=== PATIENT | male | born 1955 | race Caucasian/White ===

== ENCOUNTER 2022-07-19 08:36 | Outpatient (CLI) | payer MEDICARE, BC, SELFPAY ==
[2022-07-19 14:00] LABS: Cholesterol* 122 mg/dL (90-199)
[2022-07-19 14:01] LABS: Blood Urea Nitrogen* 14 mg/dL (7-30); Creatinine* 0.7 mg/dL (0.5-1.5); Estimated Glomerular Filt Rate 101 ml/min; Glucose* 66 mg/dL (60-115); Triglycerides* 87 mg/dL (40-149)
[2022-07-19 14:02] LABS: HDL Cholesterol* 42 mg/dL (>=40); LDL Cholesterol Calculated 63 mg/dL (<100)
[2022-07-19 14:30] LABS: PSA Screen* 0.56 ng/mL (0.10-4.00)
[2022-07-19 14:49] LABS: Vitamin B12* 326 pg/mL (243-894)
[2022-07-19 15:15] LABS: Sodium* 142 mmol/L (135-149)
[2022-07-19 15:53] LABS: Calcium* 9.8 mg/dL (8.4-10.6); Carbon Dioxide* 27 mmol/L (20-32); Chloride* 107 mmol/L (96-114); Potassium* 4.5 mmol/L (3.6-5.1)
== END 2022-07-19 08:37 | disposition home or self-care (01) ==
PROVIDERS: PCP Family Medicine; Visit Provider Family Medicine
DX: Z00.00 Encounter for general adult medical examination without abnormal findings (principal); Z13.21 Encounter for screening for nutritional disorder; N40.0 Benign prostatic hyperplasia without lower urinary tract symptoms; Z12.5 Encounter for screening for malignant neoplasm of prostate; E78.5 Hyperlipidemia, unspecified; Z13.29 Encounter for screening for other suspected endocrine disorder; Z13.1 Encounter for screening for diabetes mellitus
CPT/HCPCS: 80048; 80061; 82607; 84153; 84443

== ENCOUNTER 2023-07-15 10:32 | Outpatient (CLI) | payer MEDICARE, BC, SELFPAY | END 2023-07-15 10:33 | disposition home or self-care (01) | PROVIDERS: PCP Family Medicine; Visit Provider Family Medicine | DX: E78.5 Hyperlipidemia, unspecified (principal); Z13.1 Encounter for screening for diabetes mellitus; Z13.0 Encounter for screening for diseases of the blood and blood-forming organs and certain disorders involving the immune mechanism | CPT/HCPCS: 80048; 80061 ==

== ENCOUNTER 2024-11-21 10:51 | Outpatient (CLI) | payer MEDICARE, BC, SELFPAY | END 2024-11-21 10:52 | disposition home or self-care (01) | PROVIDERS: PCP Family Medicine; Visit Provider Family Medicine | DX: E78.5 Hyperlipidemia, unspecified (principal); R53.83 Other fatigue; Z13.0 Encounter for screening for diseases of the blood and blood-forming organs and certain disorders involving the immune mechanism; Z12.5 Encounter for screening for malignant neoplasm of prostate; Z13.1 Encounter for screening for diabetes mellitus; Z83.2 Family history of diseases of the blood and blood-forming organs and certain disorders involving the immune mechanism; B00.9 Herpesviral infection, unspecified; Z15.01 Genetic susceptibility to malignant neoplasm of breast | CPT/HCPCS: 80048; 80061; 81241; G0103 ==

== ENCOUNTER 2025-01-02 14:27 | Emergency (ER) | payer MEDICARE, BC, SELFPAY ==
[2025-01-02] VITALS (13 sets, daily range): BP systolic 134–160; BP diastolic 87–96; PULSE 51–66; RESP 16–21; TEMP 36.6; O2SAT 90–97; BMI 27.8
--- NOTE | 2025-01-02 14:46 | CRLHL7_ITS ---
For Patients: As a result of the Century Cures Act, medical imaging exams and procedure reports are released immediately into your electronic medical record. You may view this report before your referring provider. If you have questions, please contact your health care provider. INDICATION: Right lower extremity pain. TECHNIQUE: Right lower extremity Doppler venous ultrasound examination was performed. Grayscale and color Doppler images were obtained. Spectral analysis was performed. COMPARISON: None. FINDINGS: RIGHT LOWER EXTREMITY: Common femoral vein: Fully compressible. No deep vein thrombus. Normal flow and response to augmentation on color Doppler imaging. Superficial femoral vein: The mid and distal superficial femoral vein is noncompressible. There is preservation of flow on color Doppler imaging. Deep femoral vein: No deep vein thrombus Popliteal vein: Noncompressible popliteal vein with absence of flow on color Doppler imaging. Lower calf: The visualized posterior tibial and peroneal veins are fully compressible. No deep vein thrombus. Normal flow and response to augmentation on color Doppler imaging. Superficial veins: Noncompressible greater saphenous vein due to a superficial venous thrombus. Soft tissues: No popliteal fossa fluid collection identified. LEFT LOWER EXTREMITY: Common femoral vein: Fully compressible. No deep vein thrombus. Normal flow and response to augmentation on color Doppler imaging. IMPRESSION: 1. Acute deep vein thrombus within the left femoro-popliteal system. 2. Left greater saphenous vein superficial thrombophlebitis. Dictated by Eris Gamez MD @ 01/02/2025 4:07:32 PM (Electronically Signed)
--- NOTE | 2025-01-02 14:47 | ED_ITS ---
HPI - General Adult General Chief complaint: Extremity Pain/Injury, Lower <Kiran Simmons MD - Last Filed: 01/05/25 15:54> Stated complaint: Back of R leg pain, poss. blood clot sent triage <Kiran Simmons MD - Last Filed: 01/05/25 15:54> Time Seen by Provider: 01/02/25 14:32 <Kiran Simmons MD - Last Filed: 01/05/25 15:54> History of Present Illness HPI narrative: Patient is a 69-year-old male who recently traveled to [facility] and return on a flight. Has had 10 days symptoms of right inner groin pain and proximal thigh pain on the medial aspect. He feels that there is some fullness in there and tenderness. He has not had redness or warmth erythema no leg swelling. He has factor 5 Leiden mutation. He was not on aspirin on his flight. He sees Dr. Fagan for primary care. He does not have any chest pain shortness of breath today does not any difficulty breathing his O2 sat is excellent today. Last night he was lying in bed and he felt just chest symptoms but these resolved. He has a history of BPPV. Vital signs today look within normal limits O2 sat 96% he is afebrile blood pressure 134/87. <Kiran Simmons MD - Last Filed: 01/05/25 15:54> Related Data Home medications: Home Medications ?Medication ?Instructions ?Recorded ?Confirmed cholecalciferol (vitamin D3) 10 10 mcg PO QDAY 2 01/02/25 mcg (400 unit) capsule cyanocobalamin (vitamin B-12) 1,000 mcg PO QDAY 01/02/25 1,000 mcg capsule acyclovir 400 mg tablet 400 mg PO TID PRN 11/21/24 0 01/02/25 omeprazole 20 mg tablet,delayed 20 mg PO QDAY 11/21/24 01/02/25 release atorvastatin 20 mg tablet 20 mg PO QDAY 12/01/2401/02 Previous Rx's ?Medication ?Instructions ?Recorded tamsulosin 0.4 mg capsule See Rx Instructions .Route 0 11/21/24 .COMPLEX #90 caps apixaban 5 mg tablet (Eliquis) 5 mg PO BID #60 tabs apixaban 5 mg tablet (Eliquis) 10 mg (2 x 5 mg) PO BID 7 days #14 01/02/25 tabs <Kiran Simmons MD - Last Filed: 01/05/25 15:54> Allergies/adverse reactions: Allergies Allergy/AdvReac Type Severity Reaction Status Date / Time No Known Allergies Allergy Unknown Verified 01/02/25 17:20 <Kiran Simmons MD - Last Filed: 01/05/25 15:54> Review of Systems Status of ROS: Reports: 6 or more systems reviewed and unremarkable except as noted in History and below <Kiran Simmons MD - Last Filed: 01/05/25 15:54> PFSH PFS Surgical History: Surgical History Status post vasectomy ?Z98.52 - Vasectomy status (ICD-10) History of hand surgery ?Z98.890 - Other specified postprocedural states (ICD-10) <Kiran Simmons MD - Last Filed: 01/05/25 15:54> Family History: Family History Other ASCVD (arteriosclerotic cardiovascular disease) Diabetes <Kiran Simmons MD - Last Filed: 01/05/25 15:54> Social History: Social History What is your current living situation?: I presently have a place to live Problems where you live: no known problems In the past 12 months, utilities in danger of being shut off: no In past 12 months, lack of transportation kept you from medical appts, meetings, work, or getting things needed for daily living: no In the past 12 mos, have been you worried that your food would run out before you had money to buy more?: never true In the past 12 mos, the food you bought just didn't last and you didn't have money to buy more?: never true Smoking Status: Never smoker Do you use any of these nicotine containing products: None Second hand tobacco smoke exposure: No How often do you have a drink containing alcohol: never AUDIT-C Alcohol total score: 0 Non-prescribed substance use: denies use How often does anyone, including family, friends and others, physically hurt you : never How often does anyone, including family, friends and others, insult or talk down to you: never How often does anyone, including family, friends and others, threaten you with harm: never How often does anyone, including family, friends and others, scream or curse at you: never <Kiran Simmons MD - Last Filed: 01/05/25 15:54> Exam Narrative: Exam Narrative: Objective: The patient is asymptomatic currently other than some right inner thigh pain. No chest pain complained of no shortness of breath. No dizziness at this time. HEENT is unremarkable no facial asymmetry neck is supple chest is clear no rales or wheezing heart rhythm regular 2/6 systolic murmur. Extremities he has got some right inner thigh proximal discomfort. No redness, no erythema, no marked tenderness, no fluctuance. Right lower extremity shows no swelling or edema. <Kiran Simmons MD - Last Filed: 01/05/25 15:54> Const: Vital Signs, click to edit/add: Vital Signs - 24 hr 01/02/25 14:30 01/02/25 15:57 Temperature 97.9 F Pulse Rate [Pulse Oximeter] 66 Respiratory Rate 16 Blood Pressure [Ri ght Upper Arm] 134/87 Pulse Oximetry 96 97 Oxygen Delivery Me thod Room Air <Kiran Simmons MD - Last Filed: 01/05/25 15:54> Vital Signs, click to edit/add: Vital Signs - 24 hr 01/02/25 14:30 01/02/25 15:57 Temperature 97.9 F Pulse Rate [Pulse Oximeter] 66 Respiratory Rate 16 Blood Pressure [Ri ght Upper Arm] 134/87 Pulse Oximetry 96 97 Oxygen Delivery Me thod Room Air <Raymundo Smith MD - Last Filed: 01/04/25 11:43> Course Vital Signs Vital signs: Initial Vital Signs Temperature 97.9 F 01/02/25 14:30 Temperature Source Temporal Artery Scan 01/02/25 14:30 Pulse Rate 66 01/02/25 14:30 Respiratory Rate 16 01/02/25 14:30 Blood Pressure 134/87 01/02/25 14:30 Blood Pressure Mean 102 01/02/25 14:30 Blood Pressure Position Sitting 01/02/25 14:30 Pulse Oximetry 96 01/02/25 14:30 Oxygen Delivery Method Room Air 01/02/25 14:30 Vital Signs Temperature 97.9 F 01/02/25 14:30 Pulse Rate 66 01/02/25 14:30 Respiratory Rate 16 01/02/25 14:30 Blood Pressure 134/87 01/02/25 14:30 Pulse Oximetry 96 01/02/25 14:30 Oxygen Delivery Method Room Air 01/02/25 14:30 Temperature 97.9 F 01/02/25 14:30 Pulse Rate 56 L 01/02/25 18:45 Respiratory Rate 21 01/02/25 17:00 Blood Pressure 160/96 H 01/02/25 16:53 Pulse Oximetry 92 01/02/25 18:45 Oxygen Delivery Method Room Air 01/02/25 14:30 <Kiran Simmons MD - Last Filed: 01/05/25 15:54> Initial Vital Signs Temperature 97.9 F 01/02/25 14:30 Temperature Source Temporal Artery Scan 01/02/25 14:30 Pulse Rate 66 01/02/25 14:30 Respiratory Rate 16 01/02/25 14:30 Blood Pressure 134/87 01/02/25 14:30 Blood Pressure Mean 102 01/02/25 14:30 Blood Pressure Position Sitting 01/02/25 14:30 Pulse Oximetry 96 01/02/25 14:30 Oxygen Delivery Method Room Air 01/02/25 14:30 Vital Signs Temperature 97.9 F 01/02/25 14:30 Pulse Rate 66 01/02/25 14:30 Respiratory Rate 16 01/02/25 14:30 Blood Pressure 134/87 01/02/25 14:30 Pulse Oximetry 96 01/02/25 14:30 Oxygen Delivery Method Room Air 01/02/25 14:30 Temperature 97.9 F 01/02/25 14:30 Pulse Rate 56 L 01/02/25 18:45 Respiratory Rate 21 01/02/25 17:00 Blood Pressure 160/96 H 01/02/25 16:53 Pulse Oximetry 92 01/02/25 18:45 Oxygen Delivery Method Room Air 01/02/25 14:30 <Raymundo Smith MD - Last Filed: 01/04/25 11:43> Medications Administered Medications: Discontinued Medications Generic Name Dose Route Start Last Admin Trade Name Freq PRN Reason Stop Dose Admin Apixaban 10 mg 01/02/25 15:42 01/02/25 16:41 Apixaban 5 Mg Tablet PO 01/02/25 15:43 10 mg ONCE ONE Administration <Kiran Simmons MD - Last Filed: 01/05/25 15:54> Discontinued Medications Generic Name Dose Route Start Last Admin Trade Name Freq PRN Reason Stop Dose Admin Apixaban 10 mg 01/02/25 15:42 01/02/25 16:41 Apixaban 5 Mg Tablet PO 01/02/25 15:43 10 mg ONCE ONE Administration <Raymundo Smith MD - Last Filed: 01/04/25 11:43> Medical Decision Making MDM Narrative Medical decision making narrative: [age] year white male recent flight with factor 5 mutation with some right inner thigh symptoms. Certainly this could be from his travel from walking sitting too long cetera. Need to rule out DVT. He does not have symptoms of a PE. He does not have coronary artery symptoms. At this point will do a Doppler scan of his right lower extremity this is negative then presumably per Dr. Griffin's recommendation should be on aspirin daily and ice pack they inner thigh recheck with Elias in a few days, if problems or concerns in the interim return to the ED ,he was comfortable this , specifically out ask him to come back if he has any chest pain or shortness of breath. Also any leg swelling. Addendum 3:42 p.m.: The patient has a positive Doppler scan for DVT in the right lower extremity. He has a small clot in his mid thigh and then from his knee down it is clotted. He was given apixaban 10 mg he will need 10 mg b.i.d. for 7 days then 5 b.i.d. for probably 3 months. Because he had some chest symptoms last night will get a chest CT scan, EKG, put him on a monitor and oximetry. If these are all reassuring and there is no significant PE such as saddle emboli he could probably be discharged on the Eliquis given his stability of vital signs and clinical situation. Will notify Dr. Diaz of findings and he will follow up the CT scan EKG and I will put in orders for the Eliquis. <Kiran Simmons MD - Last Filed: 01/05/25 15:54> [age] year white male recent flight with factor 5 mutation with some right inner thigh symptoms. Certainly this could be from his travel from walking sitting too long cetera. Need to rule out DVT. He does not have symptoms of a PE. He does not have coronary artery symptoms. At this point will do a Doppler scan of his right lower extremity this is negative then presumably per Dr. Griffin's recommendation should be on aspirin daily and ice pack they inner thigh recheck with Elias in a few days, if problems or concerns in the interim return to the ED ,he was comfortable this , specifically out ask him to come back if he has any chest pain or shortness of breath. Also any leg swelling. Addendum 3:42 p.m.: The patient has a positive Doppler scan for DVT in the right lower extremity. He has a small clot in his mid thigh and then from his knee down it is clotted. He was given apixaban 10 mg he will need 10 mg b.i.d. for 7 days then 5 b.i.d. for probably 3 months. Because he had some chest symp toms last night will get a chest CT scan, EKG, put him on a monitor and oximetry. If these are all reassuring and there is no significant PE such as saddle emboli he could probably be discharged on the Eliquis given his stability of vital signs and clinical situation. Will notify Dr. Diaz of findings and he will follow up the CT scan EKG and I will put in orders for the Eliquis. Sarah -- Inherited this patient at change of shift pending CT imaging of his chest. documented right leg DVT and has been given a dose of apixaban. Is not hypoxic or demonstrating respiratory findings. EKG is reviewed independently by me showing a sinus bradycardia at a rate of 50. Looks like historically is in a lower heart rate generally. do not have prior EKG for comparison I did review CT imaging. Radiology confirms multiple small emboli in the right lower lung. No right heart strain. Cardiomegaly is noted. This will need to be further characterized. Does have a long history of being a runner. Is already to receive anticoagulation that would be appropriate for PEs as well. Duration is now to be considered. Radiology over-read below dication: DVT IN LEG, CHEST TIGHTNESS Technique: CTA chest, pulmonary embolism protocol, utilizing 95 mL Isovue 370 Comparison: None Findings: Subcentimeter low-density left thyroid nodule, for which no routine follow-up imaging is needed. No thoracic lymphadenopathy. Cardiomegaly. No CT evidence of right heart strain. No pericardial effusion. Coronary artery calcifications. The thoracic aorta and pulmonary artery are normal in caliber. There are few small pulmonary emboli in the segmental arteries of the right lower lobe (series number 4, image 104-133). No focal airspace consolidation, pleural effusion, or pneumothorax. Trace bibasilar atelectasis. No suspicious pulmonary nodules or masses. The airways are clear. The imaged upper abdomen is without acute abnormality. No acute fracture or malalignment. There are some degenerative changes of the spine. Impression: 1. There are few small pulmonary emboli in the segmental arteries of the right lower lobe (series number 4, image 104-133). 2. Cardiomegaly without CT evidence of right heart strain. Please note that all CT scans at this facility use dose modulation, iterative reconstruction, and/or weight-based dosing when appropriate to reduce radiation dose to as low as reasonably achievable. Dictated by Kvng Morales MD @ 01/02/2025 6:05:55 PM ----- ADDENDUM ----- Report was received by Dr. Smith @ 1809 hours on 01/02/2025. Dictated by Kvng Morales MD @ Jan 02 2025 6:16PM (Electronically Signed) For Patients: As a result of the Century Cures Act, medical imaging exams and procedure reports are released immediately into your electronic medical record. You may view this report before your referring provider. If you have questions, please contact your health care provider. Indication: DVT IN LEG, CHEST TIGHTNESS Technique: CTA chest, pulmonary embolism protocol, utilizing 95 mL Isovue 370 Comparison: None Findings: Subcentimeter low-density left thyroid nodule, for which no routine follow-up imaging is needed. No thoracic lymphadenopathy. Cardiomegaly. No CT evidence of right heart strain. No pericardial effusion. Coronary artery calcifications. The thoracic aorta and pulmonary artery are normal in caliber. There are few small pulmonary emboli in the segmental arteries of the right lower lobe (series number 4, image [id number]). No focal airspace consolidation, pleural effusion, or pneumothorax. Trace bibasilar atelectasis. No suspicious pulmonary nodules or masses. The airways are clear. The imaged upper abdomen is without acute abnormality. No acute fracture or malalignment. There are some degenerative changes of the spine. Impression: 1. There are few small pulmonary emboli in the segmental arteries of the right lower lobe (series number 4, image 104-133). 2. Cardiomegaly without CT evidence of right heart strain. Please note that all CT scans at this facility use dose modulation, iterative reconstruction, and/or weight-based dosing when appropriate to reduce radiation dose to as low as reasonably achievable. Dictated by Kvng oMrales MD @ 01/02/2025 6:05:55 PM See patient discharge plan for further discussion. We are initiating anticoagulation for a blood clot in your right leg and small clots in your right lung. You might consider warm packing your right leg for comfort. I think let discomfort be your guide as far as activity but would avoid, while taking anticoagulation, activities where significant impact is more likely. See directions for anticoagulation dosing of Eliquis (apixaban). 10 mg twice da mejia for a week and then to 5 mg twice daily. Within the next week or 2 would schedule a follow-up appointment with Dr. Griffin/clinic to discuss further evaluations that might be necessary and durati on of anticoagulation. Return for persistent and increasing shortness of breath, persistent and increasing chest pain. <Raymundo Smith MD - Last Filed: 01/04/25 11:43> Medical Records Medical records reviewed: Yes I reviewed the patient's medical records <Raymundo Smith MD - Last Fi led: 01/04/25 11:43> Lab Data Lab results reviewed: Yes I reviewed the patient's lab results <Raymundo Smith MD - Last Filed: 01/04/25 11:43> Labs: Lab Results 01/02/25 Range/Units 15:52 WBC 5.92 (4.50-11.00) K/uL RBC 5.49 (4.30-5.90) m/uL Hgb 16.1 (13.5-17.5) gm/dL Hct 47.9 (37.0-53.0) % MCV 87 (80-100) fL MCH 29 (26-34) pg MCHC 34 (32-36) gm/dL RDW Coeff of Katherine 13.1 (11.5-15.5) % Plt Count 194 (140-440) K/uL Neut % (Auto) 58.4 (42.0-72.0) % Lymph % (Auto) 29.6 (20-44) % [place] % (Auto) 8.1 (0.0-11.0) % Eos % (Auto) 3.5 (0.0-7.0) % Baso % (Auto) 0.2 (0.0-3.0) % Neut # (Auto) 3.46 (1.7-7.0) K/uL Lymph # (Auto) 1.75 (0.90-2.90) K/uL [place] # (Auto) 0.50 (0.00-0.90) K/UL Eos # (Auto) 0.21 (0.00-0.50) K/uL Baso # (Auto) 0.01 (0.00-0.30) K/uL Abs Immat Gran (auto) 0.01 (0.00-0.30) K/uL Imm/Tot Granulo (auto) 0.2 % INR 0.96 (0.91-1.10) APTT 25 (23-33) Seconds Sodium 141 (135-149) mmol/L Potassium 3.8 (3.6-5.1) mmol/L Chloride 105 (96-114) mmol/L Carbon Dioxide 25 (20-32) mmol/L Anion Gap 11 (7-15) mEq/L BUN 18 (7-30) mg/dL Creatinine 1.1 (0.5-1.5) mg/dL Estimated Creat Clear 69.57 Estimated GFR 73 ml/min Glucose 122 H (60-115) mg/dL Calcium 9.5 (8.4-10.6) mg/dL Total Bilirubin 1.6 H (0.1-1.5) mg/dL Direct Bilirubin 0.0 (0.0-0.5) mg/dL AST 35 (12-35) U/L ALT 44 (4-50) U/L Alkaline Phosphatase 76 (40-150) U/L C-Reactive Protein < 0.5 L (0.5-1.0) mg/dL NT-Pro-B Natriuret Pep 27 (See Note) pg/mL Total Protein 7.5 (6.0-8.3) g/dL Albumin 4.7 (3.3-5.0) g/dL <Kiran Simmons MD - Last Filed: 01/05/25 15:54> Lab Results 01/02/25 Range/Units 15:52 WBC 5.92 (4.50-11.00) K/uL RBC 5.49 (4.30-5.90) m/uL Hgb 16.1 (13.5-17.5) gm/dL Hct 47.9 (37.0-53.0) % MCV 87 (80-100) fL MCH 29 (26-34) pg MCHC 34 (32-36) gm/dL RDW Coeff of Katherine 13.1 (11.5-15.5) % Plt Count 194 (140-440) K/uL Neut % (Auto) 58.4 (42.0-72.0) % Lymph % (Auto) 29.6 (20-44) % [place] % (Auto) 8.1 (0.0-11.0) % Eos % (Auto) 3.5 (0.0-7.0) % Baso % (Auto) 0.2 (0.0-3.0) % Neut # (Auto) 3.46 (1.7-7.0) K/uL Lymph # (Auto) 1.75 (0.90-2.90) K/uL [place] # (Auto) 0.50 (0.00-0.90) K/UL Eos # (Auto) 0.21 (0.00-0.50) K/uL Baso # (Auto) 0.01 (0.00-0.30) K/uL Abs Immat Gran (auto) 0.01 (0.00-0.30) K/uL Imm/Tot Granulo (auto) 0.2 % INR 0.96 (0.91-1.10) APTT 25 (23-33) Seconds Sodium 141 (135-149) mmol/L Potassium 3.8 (3.6-5.1) mmol/L Chloride 105 (96-114) mmol/L Carbon Dioxide 25 (20-32) mmol/L Anion Gap 11 (7-15) mEq/L BUN 18 (7-30) mg/dL Creatinine 1.1 (0.5-1.5) mg/dL Estimated Creat Clear 69.57 Estimated GFR 73 ml/min Glucose 122 H (60-115) mg/dL Calcium 9.5 (8.4-10.6) mg/dL Total Bilirubin 1.6 H (0.1-1.5) mg/dL Direct Bilirubin 0.0 (0.0-0.5) mg/dL AST 35 (12-35) U/L ALT 44 (4-50) U/L Alkaline Phosphatase 76 (40-150) U/L C-Reactive Protein < 0.5 L (0.5-1.0) mg/dL NT-Pro-B Natriuret Pep 27 (See Note) pg/mL Total Protein 7.5 (6.0-8.3) g/dL Albumin 4.7 (3.3-5.0) g/dL <Raymundo Smith MD - Last Filed: 01/04/25 11:43> Discharge Plan Discharge Clinical Impression: DVT (deep venous thrombosis), Acute pain of right thigh, Pulmonary emboli <Kiran Simmons MD - Last Filed: 01/05/25 15:54> Patient Disposition: Home, Self-Care <Kiran Simmons MD - Last Filed: 01/05/25 15:54> Condition: Stable <Kiran Simmons MD - Last Filed: 01/05/25 15:54> Instructions: Pulmonary Embolism (ED), Deep Vein Thrombosis (ED), Blood Thinners (ED) <Kiran Simmons MD - Last Filed: 01/05/25 15:54> Additional Instructions: We are initiating anticoagulation for a blood clot in your right leg and small clots in your right lung. You might consider warm packing your right leg for comfort. I think let discomfort be your guide as far as activity but would avoid, while taking anticoagulation, activities where significant impact is more likely. See directions for anticoagulation dosing of Eliquis (apixaban). 10 mg twice daily for a week and then to 5 mg twice daily. Within the next week or 2 would schedule a follow-up appointment with Dr. Griffin/clinic to discuss further evaluations that might be necessary and duration of anticoagulation. Return for persistent and increasing shortness of breath, persistent and increasing chest pain. <Kiran Simmons MD - Last Filed: 01/05/25 15:54> Activity Level: No Restrictions <Kiran Simmons MD - Last Filed: 01/05/25 15:54> No Restrictions <Raymundo Smith MD - Last Filed: 01/04/25 11:43> Discharge Diet: Regular <Kiran Simmons MD - Last Filed: 01/05/25 15:54> Regular <Raymundo Smith MD - Last Filed: 01/04/25 11:43> Prescriptions: New Eliquis 5 mg tablet 10 mg PO BID 7 Days Qty: 14 2RF Eliquis 5 mg tablet 5 mg PO BID Qty: 60 0RF Rx Instructions: start after the first week of 10 mg bid, go to 5 mg bid. No Action acyclovir 400 mg tablet 400 mg PO TID PRN omeprazole 20 mg tablet,delayed release (DR/EC) 20 mg PO QDAY tamsulosin 0.4 mg capsule See Rx Instructions .ROUTE .COMPLEX Qty: 90 3RF Dose Instruction: TAKE 1 CAPSULE BY MOUTH EVERY DAY Rx Instructions: TAKE 1 CAPSULE BY MOUTH EVERY DAY cholecalciferol (vitamin D3) 10 mcg (400 unit) capsule 10 mcg PO QDAY cyanocobalamin (vitamin B-12) 1,000 mcg capsule 1,000 mcg PO QDAY atorvastatin 20 mg tablet 20 mg PO QDAY <Kiran Simmons MD - Last Filed: 01/05/25 15:54> Follow Up/Referrals: Jarad Griffin MD [Primary Care Provider, Family Practice] <Kiran Simmons MD - Last Filed: 01/05/25 15:54> Stand Alone Forms: [employer] Info Instructions <Kiran Simmons MD - Last Filed: 01/05/25 15:54>
--- NOTE | 2025-01-02 15:39 | CRLHL7_ITS ---
For Patients: As a result of the Century Cures Act, medical imaging exams and procedure reports are released immediately into your electronic medical record. You may view this report before your referring provider. If you have questions, please contact your health care provider. Indication: DVT IN LEG, CHEST TIGHTNESS Technique: CTA chest, pulmonary embolism protocol, utilizing 95 mL Isovue 370 Comparison: None Findings: Subcentimeter low-density left thyroid nodule, for which no routine follow-up imaging is needed. No thoracic lymphadenopathy. Cardiomegaly. No CT evidence of right heart strain. No pericardial effusion. Coronary artery calcifications. The thoracic aorta and pulmonary artery are normal in caliber. There are few small pulmonary emboli in the segmental arteries of the right lower lobe (series number 4, image [id number]). No focal airspace consolidation, pleural effusion, or pneumothorax. Trace bibasilar atelectasis. No suspicious pulmonary nodules or masses. The airways are clear. The imaged upper abdomen is without acute abnormality. No acute fracture or malalignment. There are some degenerative changes of the spine. Impression: 1. There are few small pulmonary emboli in the segmental arteries of the right lower lobe (series number 4, image [id number]). 2. Cardiomegaly without CT evidence of right heart strain. Please note that all CT scans at this facility use dose modulation, iterative reconstruction, and/or weight-based dosing when appropriate to reduce radiation dose to as low as reasonably achievable. Dictated by Kvng Morales MD @ 01/02/2025 6:05:55 PM (Electronically Signed)
[2025-01-02 16:06] LABS: Basophils Absolute Auto 0.01 K/uL (0.00-0.30); Basophils Percent Auto 0.2 % (0.0-3.0); Eosinophils Absolute Auto 0.21 K/uL (0.00-0.50); Eosinophils Percent Auto 3.5 % (0.0-7.0); Hematocrit* 47.9 % (37.0-53.0); Hemoglobin* 16.1 gm/dL (13.5-17.5); Immature Granulocytes Abs Auto 0.01 K/uL (0.00-0.30); Immature Granulocytes Pct Auto 0.2 %; Lymphocytes Absolute Auto 1.75 K/uL (0.90-2.90); Lymphocytes Percent Auto 29.6 % (20-44); Mean Corpuscular HGB Conc 34 gm/dL (32-36); Mean Corpuscular Hemoglobin 29 pg (26-34); Mean Corpuscular Volume 87 fL (80-100); Monocytes Percent Auto 8.1 % (0.0-11.0); Neutrophils Absolute Auto 3.46 K/uL (1.7-7.0); Neutrophils Percent Auto 58.4 % (42.0-72.0); Platelet Count* 194 K/uL (140-440); RDW Coefficient of Variation % 13.1 % (11.5-15.5); Red Blood Count* 5.49 m/uL (4.30-5.90); White Blood Count* 5.92 K/uL (4.50-11.00)
[2025-01-02 16:28] LABS: Slide Review Reflex No
[2025-01-02 16:30] LABS: INR 0.96 (0.91-1.10); Partial Thromboplastin Time* 25 Seconds (23-33); Prothrombin Time 13.5 Seconds
[2025-01-02 16:31] LABS: Albumin* 4.7 g/dL (3.3-5.0); Chloride* 105 mmol/L (96-114); Sodium* 141 mmol/L (135-149)
[2025-01-02 16:32] LABS: Potassium* 3.8 mmol/L (3.6-5.1)
[2025-01-02 16:34] LABS: Alanine Aminotransferase* 44 U/L (4-50); Alkaline Phosphatase* 76 U/L (40-150); Anion Gap 11 mEq/L (7-15); Aspartate Amino Transferase* 35 U/L (12-35); Bilirubin Total* 1.6 mg/dL (0.1-1.5); Blood Urea Nitrogen* 18 mg/dL (7-30); Carbon Dioxide* 25 mmol/L (20-32); Creatinine* 1.1 mg/dL (0.5-1.5); Est. Creatinine Clearance* 69.57; Estimated Glomerular Filt Rate 73 ml/min; Total Protein* 7.5 g/dL (6.0-8.3)
[2025-01-02 16:35] LABS: Calcium* 9.5 mg/dL (8.4-10.6); Glucose* 122 mg/dL (60-115)
[2025-01-02] MEDS: APIXABAN 5 MG TABLET 10 MG PO (16:41)
[2025-01-02 16:44] LABS: C Reactive Protein* < 0.5 mg/dL (0.5-1.0); NT Pro B Type NatriureticPept* 27 pg/mL (See Note)
== END 2025-01-02 19:05 | disposition home or self-care (01) ==
PROVIDERS: Emergency Provider Family Medicine; PCP Family Medicine
DX: M79.651 Pain in right thigh (principal); I82.501 Chronic embolism and thrombosis of unspecified deep veins of right lower extremity; I26.99 Other pulmonary embolism without acute cor pulmonale
CPT/HCPCS: 36415; 71275; 80048; 80076; 83880; 85025; 85610; 85730; 86140; 93005; 93971; 94761; 99285; A9270; Q9967